=== PATIENT | female | born 1995 | race Caucasian/White ===

== ENCOUNTER 2025-04-23 16:12 | Emergency (ER) | payer MEDICAID, OTHER ==
[~2025-04-23] VITALS: Ht 170.2 cm; Wt 150.1 kg
[2025-04-23 16:14] VITALS: BP 176/99; PULSE 97; RESP 16; O2SAT 98
[2025-04-23 16:37] LABS: BILIRUBIN,URINE NEGATIVE (Neg); CLARITY,URINE CLOUDY (Clear); COLOR,URINE YELLOW (Yellow); GLUCOSE, URINE 100 mg/dl (Neg); KETONES,URINE NEGATIVE (Neg); LEUKOCYTE ESTERASE ,URINE TRACE (Neg); NITRITES, URINE POSITIVE (Neg); OCCULT BLOOD,URINE LARGE (Neg); PROTEIN,URINE TRACE mg/dl (Neg); URINE HCG NEGATIVE (NEG); UROBILINOGEN,URINE 0.2 E.U/dL (0.2-1.0)
[2025-04-23 16:49] LABS: UA COLLECTION TYPE CLN CATCH MIDSTREAM
[2025-04-23 16:51] LABS: BACTERIA,URINE 4+ /HPF (Neg); MUCUS STRANDS FEW /LPF (Neg); SQUAMOUS EPITHELIAL CELL,UR MODERATE /LPF (FEW); WBC,URINE 30-50 /HPF (0-4)
[2025-04-23 16:52] LABS: RENAL CELLS, URINE FEW /HPF; TRANSITIONAL EPI CELLS,URINE FEW /HPF
--- NOTE | 2025-04-23 17:41 | Physician Documentation ---
History of Present Illness ~ Chief Complaint: Vaginal Bleeding Stated Complaint: VAGINAL BLEEDING Time Seen by MD: 17:18 HPI This is a 29-year-old female who presents with approximately five weeks of heavy vaginal bleeding, patient reports that symptoms began around when she would normally get her menstrual period though continued to bleed going through proximally 4-5 tampons daily with some clots, patient reports she was seen by her primary care provider approximately four weeks ago in his being worked up for PCOS as a possible cause of the symptoms, patient reports symptoms have been consistent for the past five weeks and there has been no change in symptoms or consistency. Patient additionally reports suprapubic cramps described as normal menstrual cramps and some soreness in her back. Patient reports no fever or dysuria. Patient reports no recent vaginal trauma. Medication Reconciliation Allergies: Coded Allergies: No Known Allergies (Unverified , 04/23/25) Scheduled Cephalexin*Monohydrate* (Keflex*), 1 CAP PO BID Ibuprofen (Ibuprofen), 1 TAB PO Q8H Medroxyprogesterone Acet (Provera), 5 MG PO DAILY Review of Systems ROS Abnormal vaginal bleeding and suprapubic cramping as stated above in the HPI, otherwise all systems are reviewed and negative. Physical Exam Vital Signs: Temperature: 98.0, Source: Temporal, Heart Rate: 97, Respiratory Rate: 16, BP: 176/99, Pulse Oximetry: 98, Weight: 150.100 Oxygen Flow Rate: 0 Physical Exam VITALS: Reviewed and as above. GENERAL: Alert, nontoxic appearing, no apparent distress. RESPIRATORY: No increased work of breathing, no respiratory distress, speaking in full clear sentences Progress Results/Orders Results/Orders Completed Orders - TRISTAN JARRETT [employer] BMP (04/23/25 17:35) Cbc/Diff (04/23/25 17:35) Ibuprofen Tablet (Motrin Tablet) (04/23/25 19:30) Cephalexin Capsule (Keflex Capsule) (04/23/25 19:30) Vital Signs 04/23/25 04/23/25 16:14 19:33 Temp 98.0 98.0 Pulse 97 Resp 16 B/P (MAP) 176/99 Pulse Ox 98 O2 Flow Rate 0 Laboratory Tests Test 04/23/25 16:18 04/23/25 18:21 Urine Specimen Description Cln catch midstream Urine Color Yellow Urine Clarity Cloudy Urine pH 6.0 Urine Specific [place] >=1.030 Urine Protein Trace Urine Glucose (UA) 100 H Urine Ketones Negative Urine Occult Blood Large H Urine Nitrite Positive H Urine Bilirubin Negative Urine Urobilinogen 0.2 Urine Leukocyte Esterase Trace H Urine RBC 3-10 Urine WBC 30-50 H Urine Squamous Epithelial Cells Moderate Urine Transitional Epithelial Cells Few Urine Renal Cells Few Urine Bacteria 4+ Urine Mucus Few Urine Culture Indicated Indicated Volume Urine Centrifuged 10 ml Urine HCG, Qualitative Negative Urine Comment White Blood Count 5.9 Red Blood Count 4.81 Hemoglobin 12.7 Hematocrit 39.2 Mean Corpuscular Volume 81.5 Mean Corpuscular Hemoglobin 26.4 L Mean Corpuscular Hemoglobin Concent 32.5 L Red Cell Distribution Width 13.5 Platelet Count 380 Mean Platelet Volume 8.4 Neutrophils (%) (Auto) 50.2 Lymphocytes (%) (Auto) 34.7 Monocytes (%) (Auto) 10.1 Eosinophils (%) (Auto) 4.3 Basophils (%) (Auto) 0.7 Neutrophils # (Auto) 2.9 Lymphocytes # (Auto) 2.0 Monocytes # (Auto) 0.6 Eosinophils # (Auto) 0.2 Basophils # (Auto) 0.0 CBC Comment Sodium Level 139 Potassium Level 4.1 Chloride Level 103 Carbon Dioxide Level 28.7 Anion Gap 7 L Blood Urea Nitrogen 13 Creatinine 1.13 H Estimated GFR/1.73 m2 57 BUN/Creatinine Ratio 11.5 Glucose Level 100 Calcium Level 9.0 Albumin 4.1 Chemistry Comments Microbiology Date/Time Source Procedure Growth Status 04/23/25 16:52 Urine Clean Catch Midstream Urine Culture - Preliminary Culture received. Resulted Medical Decision Making Findings MSE performed in triage and patient returned to ED lobby by nursing staff This 29-year-old female presented with the proximally five weeks of abnormal vaginal bleeding along with suprapubic cramps and low back pain consistent with her regular pattern of menstrual cramps, patient is currently being worked up by primary care provider for PCOS though patient was concerned at the time in his taking for all follow up appointments. Patient is well-appearing and reporting no change in symptoms over the past five weeks, lab work did not demonstrate significant anemia, UA did demonstrate evidence of urinary tract infection however. I discussed with patient further workup including the need for a pelvic ultrasound and pelvic exam, the patient reports these tests are already scheduled outpatient, with shared decision-making patient will follow up as scheduled with the primary care provider for these tests. Patient is hemodynamically stable physical exam otherwise benign, patient will be started on course of antibiotics for urinary tract infection, prescription for ibuprofen sent for menstrual cramping, patient will be trialed on a short course of Provera to see if this assist with decreasing her menstrual bleeding. Patient is appropriate for outpatient follow up and provided careful return to care precautions, follow up instructions, and home care instructions which she verbalized understanding of. Urinary Diff Dx:Considerations: Include: Pyelonephritis, Renal failure, Urolithiasis, Urinary retention Genital Diff Dx:Considerations: Include: Blood loss anemia, Dsymenorrhea, Ectopic , Menorrhagia, Menometrorrhagia, Menstrual bleeding, PID, , UTI Departure Disposition: HOME / SELF CARE / HOMELESS Impression: Primary Impression: Vaginal bleeding Additional Impression: UTI (urinary tract infection) Qualified Codes: N30.00 - Acute cystitis without hematuria Condition: Improved Discharge Instructions: Dysfunctional Uterine Bleeding Additional Instructions: Take the medications prescribed, you may use the high-dose ibuprofen as needed for abdominal cramps, this medication may also help decrease the amount of uterine bleeding you are experiencing. Please make sure you take ibuprofen with food to avoid stomach upset. Follow up as scheduled with your primary care provider and pelvic ultrasound. Additionally contact your primary care provider tomorrow to discuss possibly following up with them sooner since your seen in the emergency department today. Please return to the emergency department for any new or worsening concerning symptoms. Referrals: NO PRIMARY CARE PROVIDER (PCP) Prescriptions Cephalexin*Monohydrate* (Keflex*) 500 Mg Capsule 1 CAP PO BID for 5 Days, #10 CAP Prov: TRISTAN JARRETT 04/23/25 Ibuprofen (Ibuprofen) 800 Mg Tablet 1 TAB PO Q8H for pain for 10 Days, #30 TAB 0 Refills Prov: TRISTAN JARRETT 04/23/25 Medroxyprogesterone Acet (Provera) 5 Mg Tablet 5 MG PO DAILY for 5 Days, #5 TAB Prov: TRISTAN JARRETT 04/23/25 Education Educated: Patient Educated regarding: diagnosis, treatment, prognosis, need for follow up Signature Scribe Signature: No scribe Attestation: The note accurately reflects work and decisions made by me.BÁRBARA Rodriguez 04/24/25 02:05 TRISTAN JARRETT [facility] April 23, 2025 17:41
[2025-04-23 18:32] LABS: BASOPHILS % (AUTO) 0.7 % (0-1); EOSINOPHILS # (AUTO) 0.2 X10'3 (0-0.9); EOSINOPHILS % (AUTO) 4.3 % (0-6); HEMATOCRIT 39.2 % (35.0-45.0); HEMOGLOBIN 12.7 g/dl (12.0-16.0); LYMPHOCYTES % (AUTO) 34.7 % (21-51); MEAN CORPUSCULAR HEMOGLOBIN 26.4 PG (27.0-31.0); MEAN CORPUSCULAR HGB CONC 32.5 g/dL (33.0-36.5); MEAN CORPUSCULAR VOLUME 81.5 FL (78-98); MEAN PLATELET VOLUME 8.4 FL (7.4-10.4); MONOCYTES # (AUTO) 0.6 X10'3 (0-0.9); MONOCYTES % (AUTO) 10.1 % (2-12); NEUTROPHILS # (AUTO) 2.9 X10'3 (1.8-7.7); NEUTROPHILS % (AUTO) 50.2 % (42-75); PLATELET COUNT 380 X10'3 (140-440); RED BLOOD COUNT 4.81 X10'6 (4.20-5.60); RED CELL DISTRIBUTION WIDTH 13.5 % (11.5-14.5); WHITE BLOOD COUNT 5.9 X10'3 (4.5-11.0)
[2025-04-23 18:40] LABS: ALBUMIN 4.1 G/DL (3.4-5.0); ANION GAP 7 (8-16); BLOOD UREA NITROGEN 13 MG/DL (7-18); BUN/CREATININE RATIO 11.5 (10.0-20.0); CHLORIDE 103 MMOL/L (99-107); CREATININE 1.13 MG/DL (0.40-0.90); GLUCOSE 100 MG/DL (70-104); POTASSIUM 4.1 MMOL/L (3.5-5.1); SODIUM 139 MMOL/L (135-145); TOTAL CARBON DIOXIDE 28.7 MMOL/L (24-32); eCRCL 71 ML/MIN; eGFR 57 ML/MIN
[2025-04-23] MEDS ORDERED: MEDR5TAB PO (19:27)
[2025-04-23] MEDS ORDERED: IBUP-1986 PO (19:27)
[2025-04-23] MEDS ORDERED: CEPH-585 PO (19:30)
[2025-04-23 19:33] VITALS: TEMP 98
[2025-04-23] MEDS: cephalexin 500mg capsule PO ONE (19:40)
[2025-04-23] MEDS: ibuprofen tablet 400 MG TABLET PO ONE (19:40)
== END 2025-04-23 19:41 | disposition home or self-care (01) ==
LOC: ER 16:13
DX: N93.9 Abnormal uterine and vaginal bleeding, unspecified (principal); N39.0 Urinary tract infection, site not specified; Z79.899 Other long term (current) drug therapy
CPT/HCPCS: 36415; 80048; 81001; 81025; 85025; 87077; 87088; 87186; 99283